=== PATIENT | male | born 1930 | race Caucasian/White ===

== ENCOUNTER 2016-08-29 12:59 | Day surgery (SDC) | payer OTHER, MEDICARE ==
[2016-08-29] MEDS ORDERED: NS 1,000 ML IV ONE (13:06)
[2016-08-29] MEDS ORDERED: DIAZEPAM 5 MG TAB PO ONE (13:06)
[2016-08-29] MEDS ORDERED: ceFAZolin 2 GM/DEXTROSE 100 ML IV ONE (13:06)
[2016-08-29] MEDS ORDERED: diphenhydrAMINE 25 MG CAP PO ONE (13:06)
[2016-08-29] MEDS ORDERED: BACITRACIN IRRIGATION/NS 50,000 UNITS/1,000 ML BTL IRR ONE (13:06)
[2016-08-29 13:37] LABS: % IMMATURE GRANULYOCYTES 0.2 % (0.0-1.1); ABSOLUTE IMMATURE GRANULOCYTES 0.01 10^3/uL (0.00-0.10); ADD DIFF? NO; ADD MORPH? NO; ADD SCAN? NO; ATYPICAL LYMPHOCYTE FLAG 0 (0-99); FRAGMENT RBC FLAG 0 (0-99); HEMATOCRIT 46.9 % (40.0-51.0); HEMOGLOBIN 15.7 g/dL (13.7-17.5); LEFT SHIFT FLG 0 (0-99); LIPEMIA HEMOLYSIS FLAG 80 (0-99); MEAN CELL HEMOGLOBIN 31.5 pg (27.9-34.1); MEAN CELL HEMOGLOBIN CONCENTR. 33.5 g/dL (32.4-36.7); PLATELET CLUMPS FLAG 0 (0-99); PLATELET COUNT 182 10^3/uL (150-400); RED BLOOD CELL COUNT 4.99 10^6/uL (4.40-6.38)
--- NOTE | 2016-08-29 13:40 | CPEKG ---
Heart Rate: 59 RR Interval: 1017 P-R Interval: 200 QRSD Interval: 154 QT Interval: 480 QTC Interval: 476 P [place]: 0 QRS [place]: 87 T Wave [place]: -40 EKG Severity - ABNORMAL ECG - EKG Impression: VENTRICULAR-PACED RHYTHM Electronically Signed By: Nas Porter 29-Aug-2016 20:46:14
[2016-08-29] MEDS ORDERED: fentaNYL 100 MCG/2 ML INJ ONE (13:44)
[2016-08-29] MEDS ORDERED: LIDO/EPI 1% **for epidural** 30 ML SDV ONE (13:44)
[2016-08-29] MEDS ORDERED: MIDAZOLAM 2 MG/2 ML VIAL ONE ×2 (13:44→16:06)
[2016-08-29] MEDS ORDERED: BUPIVACAINE 0.5% 30 ML SDV ONE (13:44)
[2016-08-29] MEDS ORDERED: LIDOCAINE 1% 30 ML SDV ONE (13:44)
[2016-08-29 13:46] LABS: INR 1.91 (0.83-1.16)
[2016-08-29 13:53] LABS: ANION GAP 14 mEq/L (8-16); CALCIUM 10.3 mg/dL (8.5-10.4); CARBON DIOXIDE 26 mEq/l (22-31); CHLORIDE 104 mEq/L (97-110); CREATININE 1.1 mg/dL (0.7-1.3); GLOMERULAR FILTRATION RATE > 60; GLUCOSE 111 mg/dL (70-100); POTASSIUM 4.1 mEq/L (3.5-5.2); SODIUM 144 mEq/L (134-144)
--- NOTE | 2016-08-29 17:34 | SUROPNOTE ---
[facility] Operative Report - Surgery PROCEDURE: GEN CHANGE INDICATION: CURT NOTED WITH RECENT PACER INTERROGATION PROCEDURE DETAILS: After consent was obtained, the patient was taken to the cardiac labor arbitrator hearing office and place on table in the usual sterile fashion. Fluoroscopic review of the old generator was performed to determine location of the leads. The pacer was set to VVI to allow safe cautery to expose the device. The old generator was explanted, and given ongoing, chronic atrial fibrillation, the atrial lead was capped off ATRIAL LEAD: (capped) 1688TC/52 SN [id number] VENTRICULAR LEAD WAS INTERROGATED: 1.0 V @ 0.5 ms, 2.2 mA and 454 ohms impedance New generator was implanted: M#: [id number] S#: [id number] pocket was closed with 4-0, 3-0, and 2-0 no complications were noted no CXR (no lead placement) and no ECG (new generator was placed uneventfully). Patient to go home later tonight (after sedation has worn off) and outpatient follow up with cardiology has been scheduled.
== END 2016-08-29 18:02 | disposition home or self-care (01) ==
LOC: FCATH 12:59
PROVIDERS: ATTEND Internal Medicine Cardiovascular Disease
PROC: 0JPT0PZ Removal of Cardiac Rhythm Related Device from Trunk Subcutaneous Tissue and Fascia, Open Approach (ICD-10-PCS; principal; 2016-08-29)
PROC: 0JH606Z Insertion of Pacemaker, Dual Chamber into Chest Subcutaneous Tissue and Fascia, Open Approach (ICD-10-PCS; principal; 2016-08-29)
DX: Z45.018 Encounter for adjustment and management of other part of cardiac pacemaker (principal); I71.9 Aortic aneurysm of unspecified site, without rupture; I25.10 Atherosclerotic heart disease of native coronary artery without angina pectoris; E78.5 Hyperlipidemia, unspecified; I10 Essential (primary) hypertension; I73.9 Peripheral vascular disease, unspecified; Z95.5 Presence of coronary angioplasty implant and graft
CPT/HCPCS: C1786; J0690; J2250; J3010

== ENCOUNTER → 2017-07-12 | Outpatient (CLI) | payer OTHER, MEDICARE | LOC: BHFA 14:00 | PROVIDERS: ATTEND Internal Medicine Cardiovascular Disease | DX: I25.10 Atherosclerotic heart disease of native coronary artery without angina pectoris (principal) | CPT/HCPCS: 78452; 93017; A9500; J2785 ==

== ENCOUNTER → 2017-07-26 | Outpatient (CLI) | payer OTHER, MEDICARE | LOC: CLAB 13:05 → CIMAGING 13:09 → EDSTATUS 13:09 | PROVIDERS: ATTEND Family Medicine | DX: R05 Cough (principal); R41.3 Other amnesia | CPT/HCPCS: 71046-PO ==

== ENCOUNTER → 2017-08-10 | Outpatient (CLI) | payer OTHER, MEDICARE | LOC: BHCLAF 13:15 | PROVIDERS: ATTEND Internal Medicine Interventional Cardiology | DX: I48.91 Unspecified atrial fibrillation (principal) | CPT/HCPCS: 93306-PO ==

== ENCOUNTER → 2018-06-27 | Outpatient (CLI) | payer OTHER, MEDICARE | LOC: BHLMT 14:00 | PROVIDERS: ATTEND Internal Medicine Cardiovascular Disease | DX: I71.9 Aortic aneurysm of unspecified site, without rupture (principal); I25.10 Atherosclerotic heart disease of native coronary artery without angina pectoris | CPT/HCPCS: 93306-PO ==

== ENCOUNTER → 2018-08-13 | Outpatient (CLI) | payer OTHER, MEDICARE | LOC: FIMAGING 15:10 | PROVIDERS: ATTEND Internal Medicine Pulmonary Disease | DX: J40 Bronchitis, not specified as acute or chronic (principal); J98.4 Other disorders of lung; Z95.0 Presence of cardiac pacemaker ==